=== PATIENT | male | born 1975 | race Caucasian/White ===

== ENCOUNTER 2021-12-28 14:22 | Emergency (ER) | payer SELFPAY ==
[~2021-12-28] VITALS: Ht 175.3 cm; Wt 150.0 kg
[2021-12-28 16:20] VITALS: BP 138/77
[2021-12-28] MEDS ORDERED: HYDROcodone-ACET 10/325MG TAB PO ONE (16:30)
[2021-12-28] MEDS ORDERED: KETOROLAC TROMETH 60MG/2ML VIAL IM ONE (16:30)
[2021-12-28] MEDS ORDERED: HYDR-4798 PO (17:51)
[2021-12-28] MEDS ORDERED: BACL10TA PO (17:51)
== END 2021-12-28 18:09 | disposition home or self-care (01) ==
LOC: EDBD 14:22 → ER 14:29
DX: S29.012A Strain of muscle and tendon of back wall of thorax, initial encounter (principal); S29.011A Strain of muscle and tendon of front wall of thorax, initial encounter; E66.01 Morbid (severe) obesity due to excess calories; Z68.42 Body mass index [BMI] 45.0-49.9, adult; I10 Essential (primary) hypertension; F12.10 Cannabis abuse, uncomplicated; V43.52XA Car driver injured in collision with other type car in traffic accident, initial encounter; Y93.89 Activity, other specified; Y92.410 Unspecified street and highway as the place of occurrence of the external cause; Y99.8 Other external cause status
CPT/HCPCS: 71045; 72070; 96372; 99284; J1885